=== PATIENT | female | born 1955 | race Caucasian/White ===

== ENCOUNTER 2020-06-23 08:58 | Outpatient (REF) | payer MEDICARE, BC, SELFPAY | END 2020-06-23 08:59 | disposition home or self-care (01) | LOC: HO.LAB 08:58 | PROVIDERS: PCP Internal Medicine; Visit Provider Internal Medicine | DX: Z20.822 Contact with and (suspected) exposure to COVID-19 (principal) | CPT/HCPCS: 36415; C9803; U0003 ==

== ENCOUNTER 2021-10-26 08:37 | Outpatient (REF) | payer MEDICARE, BC, SELFPAY ==
--- NOTE | ~2021-10-26 | MM_ITS ---
EXAMINATION: BONE DENSITOMETRY CLINICAL INDICATION: Osteopenia. COMPARISON: Previous BD dated 05/22/2018 and baseline BD dated 08/14/2013. TECHNIQUE: Using a [employer] DXA System (software version: 13.1) manufactured by [employer], dual-energy x-ray absorptiometry was performed of the lumbar spine and left hip. The images are of good technical quality. Summary results are attached. FINDINGS: AP SPINE L1-L4: Current: BMD 1.215 g/cm2, Z-score 0.8, T-score 0.3, normal, 1.9% increase from previous, 2.7% decrease from baseline (<5% change is not significant). Prior: BMD 1.192 g/cm2. Baseline: BMD 1.249 g/cm2. LEFT FEMUR, NECK: Current: BMD 1.001 g/cm2, Z-score 0.6, T-score -0.3, normal. Prior: BMD 1.061 g/cm2. Baseline: BMD 1.143 g/cm2. LEFT FEMUR, TOTAL: Current: BMD 1.111 g/cm2, Z-score 1.3, T-score 0.8, normal, 6.3% increase from previous, 4.4% decrease from baseline (<5% change is not significant). Prior: BMD 1.045 g/cm2. Baseline: BMD 1.162 g/cm2. IDENTIFIED RISK FACTORS: Menopause. HISTORY OF FRACTURE: None listed. MEDICATIONS: Multivitamin. MM/XR DEXA axial skeleton IMPRESSION: 1. DIAGNOSIS: Normal bone density based on the lowest T-score value of -0.3 in the femoral neck applying World Health Organization criteria. 2. 10-YEAR FRACTURE RISK PREDICTION, FRAX: According to the guidelines, FRAX calculation should only be performed on patients in the osteopenia bone density category. Therefore, FRAX was not performed on this patient. 3. Treatment Recommendations: NOF guidelines recommend consideration for treatment in postmenopausal women and men age 50 and older presenting with the following: -A hip or vertebral (clinical or morphometric) fracture. -T-score less than or equal to -2.5 at the femoral neck or spine after appropriate evaluation to exclude secondary causes. -Low bone mass at the hip or spine and a 10-year fracture probability by FRAX of greater than or equal to 3% for hip fracture or greater than or equal to 20% for major osteoporotic fracture based on the [place] adapted WHO algorithm. 4. Other Recommendations: All treatment decisions require clinical judgment and consideration of individual patient factors, including patient preferences, comorbidities, previous drug use, risk factors not captured in the FRAX model (e.g. frailty, falls, vitamin D deficiency, increased bone turnover, interval significant decline in bone density) and possible under or overestimation of fracture risk by FRAX. FUTURE SCAN RECOMMENDATION: People with diagnosed cases of osteoporosis or at high risk for fracture should have regular bone mineral density tests. For patients eligible for Medicare, routine testing is allowed once every 2 years. The testing frequency can be increased to one year for patients who have rapidly progressing disease, those who are receiving or discontinuing medical therapy to restore bone mass, or have additional risk factors.
== END 2021-10-26 08:38 | disposition home or self-care (01) ==
LOC: HO.MAMMO 08:37
PROVIDERS: Visit Provider Internal Medicine Medical Oncology
DX: Z13.820 Encounter for screening for osteoporosis (principal); Z78.0 Asymptomatic menopausal state; M85.80 Other specified disorders of bone density and structure, unspecified site
CPT/HCPCS: 77080

== ENCOUNTER 2022-06-12 10:44 | Outpatient (REF) | payer MEDICARE, BC, SELFPAY | END 2022-06-12 10:45 | disposition home or self-care (01) | LOC: HO.10HDL 10:44 | PROVIDERS: Visit Provider Otolaryngology | DX: Z13.89 Encounter for screening for other disorder (principal) ==

== ENCOUNTER 2022-06-12 10:48 | Outpatient (REF) | payer MEDICARE, BC, SELFPAY ==
[2022-06-12 15:46] LABS: Blood Urea Nitrogen 14 mg/dL (9-16); Estimated Glomerular Filt Rate > 60
== END 2022-06-12 10:49 | disposition home or self-care (01) ==
LOC: HO.10HDL 10:48
PROVIDERS: Visit Provider Otolaryngology
DX: Z01.812 Encounter for preprocedural laboratory examination (principal); R42 Dizziness and giddiness
CPT/HCPCS: 36415; 82565; 84520

== ENCOUNTER 2022-06-21 08:01 | Outpatient (REF) | payer MEDICARE, BC, SELFPAY ==
--- NOTE | ~2022-06-21 | MR_ITS ---
EXAMINATION: MR BRAIN WITHOUT AND WITH CONTRAST CLINICAL INFORMATION: Sudden onset left-sided hearing loss. Vertigo. COMPARISON: CT head from 09/19/2019. TECHNIQUE: Multiplanar, multisequence MRI of the brain was obtained using a skull base protocol without and following the administration of 10 mL of Gadavist intravenous contrast. FINDINGS: No focal restricted diffusion is demonstrated to suggest acute or subacute cerebral ischemia. No evidence of acute or chronic hemorrhagic products on heme-sensitive imaging. Scattered and partially confluent periventricular, deep white matter, and brainstem T2 FLAIR hyperintensities consistent with mild to moderate underlying microangiopathy. The ventricles are normal in morphology and size. No abnormal mass effect. No midline shift. Normal appearance of the pituitary gland. Normal positioning of the cerebellar tonsils. No mass of the cerebellopontine angles. Normal appearance of the cranial nerve V, VII, and VIII nerve roots. No edema or vascular loops near the nerve root entry sites. Normal appearance of the internal auditory canals without enhancing mass lesions. No abnormal enhancement along the course of the facial nerves bilaterally. Normal appearance of the labyrinthine structures without loss of T2 signal or abnormal enhancement. Normal arterial and venous vascular flow voids are present. No abnormal intracranial contrast enhancement. Normal, homogeneous marrow signal. Mild mucosal thickening of the paranasal sinuses. No signal abnormalities within the mastoids. MR/MR head/brain wo/w con IMPRESSION: 1. No acute intracranial abnormalities. No abnormal intracranial enhancement. 2. Mild to moderate underlying microangiopathy. 3. No additional MRI abnormalities to explain the patient's symptoms.
== END 2022-06-21 08:02 | disposition home or self-care (01) ==
LOC: HO.MRI 08:01
PROVIDERS: PCP Internal Medicine; Visit Provider Otolaryngology
DX: H91.22 Sudden idiopathic hearing loss, left ear (principal); H81.4 Vertigo of central origin; D33.3 Benign neoplasm of cranial nerves
CPT/HCPCS: 70553; A9585

== ENCOUNTER 2024-12-28 09:12 | Day surgery (SDC) | payer MEDICARE, BC, SELFPAY ==
--- OUTSIDE RECORDS SUMMARY | 2024-12-03 11:47 | XMS_ITS | Patient Health Record ---
Author Organization [facility] Address [address] [place] [id number] Care Team Providers Care District Plant Superintendent Name Role Phone Tyrone Cifuentes M.D. Primary Care Provider Unav ailable Myles Curtis Unavailable [phone] Allergies Allergen (clinical drug ingredient) Drug/Non Drug Allergy documented on EMR Reaction Allergy Type Onset Date Status Penicillin Unknown Drug Allergy Active Latex Gloves rash Drug Allergy Acti ve Reason For Referral No Information Medications Medication SIG (Take, Route, Fr equency, Duration) Notes Start Date End Date Status Omeprazole 20 MG 1 capsule Orally Onc e a day for 30 day(s) PRN 06/11/2013 Active L-Lysine Active Multi Vitamin/Minerals Active Immunizations Vaccine Route Administration Date Status Comme nts Influenza Unknown 02/24/2019 Administered Problems Problem Type SNOMED Code ICD Code Onset Dates Problem Status W/U Status Risk Notes Problem 574024227 Encounter for screening for malignant neoplasm of colon (Z12.11) Active confirmed Problem 136984937 History of adenomatous polyp of colon (Z86.010) Active confirmed Problem 533670092 Gastroesophageal reflux disease without esophagitis (K21.9) Active confirmed Problem 635159110024079 Preprocedural examination (Z01.818) Active confirmed Vital Signs Blood pressure diastolic 77 mm Hg 10/01/2024 Height 66 in 10/01/2024 Blood pressure systolic 111 mm Hg 10/01/2024 Weight 261 lbs 10/01/2024 BMI 42.12 kg/m2 10/01/2024 Procedures Procedure Date Ordered Date Performed Result Body Sit e COLONOSCOPY 10/01/2024 N/A Encounters Encounter Location Date Provider Diagnosis [facility] [address] [place] [address] 10/01/2024 Myles Curtis History of adenomato us polyp of colon Z86.010 ; Gastroesophageal reflux disease without esophagitis K21.9 ; Encounter for screening for malignant neoplasm of colon Z12.11 and Preprocedural examination Z01.818 [facility] [address] [place] [address] 12/03/2024 Myles Curtis Assessments Encounter Date Diagnosis (ICD Code) Assessment Notes Treatment Notes Treatment Clinical Notes Section Notes 10/01/2024 History of adenomatous polyp of colon (ICD-10 - Z86.010) Overall, Meliza appears well. She is not having any new nor worrisome GI complaints. Given her age, history of tubular adenomas of the colon, and her last colonoscopy being over 5 years ago, I did recommend a follow-up colonoscopy for further screening purposes. We did review the rationale for this in regard to colon cancer prevention. Full consent has been obtained for this, including risks of bleeding and perforation. The procedure will be done with monitored anesthesia care. Of note, she does advise me that she may be starting Zepbound injections for weight loss. I did advise that she will need to stop that for at least 7 days before the procedure. In regard to her reflux this seems to be stable on her current regimen of the prn omeprazole. I did advise her that obviously watching her diet and losing weight would be helpful with this condition as well. I also advised her that she could take omeprazole prior to eating in restaurants or use it more regularly if she finds that her symptoms require it, rather than using frequent lvbg-lsf-sywfj er antacids. I advised her that based on the 2 negative previous upper endoscopies and her clinical history that I do not think she requires a repeat upper endoscopy at this time. Meliza was comfortable with this plan. Thank you again for allowing me to participate in Meliza's care. I shall continue to keep you advised of her progress. 10/01/2024 Gastroesophageal reflux disease without esophagitis (ICD-10 - K21.9) USE THE OMEPRAZOLE NEEDED OR DAILY FOR THE REFLUX Overall, Meliza appears well. She is not having any new nor worrisome GI complaints. Given her age, history of tubular adenomas of the colon, and her last colonoscopy being over 5 years ago, I did recommend a follow-up colonoscopy for further screening purposes. We did review the rationale for this in regard to colon cancer prevention. Full consent has been obtained for this, including risks of bleeding and perforation. The procedure will be done with monitored anesthesia care. Of note, she does advise me that she may be starting Zepbound injections for weight loss. I did advise that she will need to stop that for at least 7 days before the procedure. In regard to her reflux this seems to be stable on her current regimen of the prn omeprazole. I did advise her that obviously watching her diet and losing weight would be helpful with this condition as well. I also advised her that she could take omeprazole prior to eating in restaurants or use it more regularly if she finds that her symptoms require it, rather than using frequent bkjg-ndn-clvui er antacids. I advised her that based on the 2 negative previous upper endoscopies and her clinical history that I do not think she requires a repeat upper endoscopy at this time. Meliza was comfortable with this plan. Thank you again for allowing me to participate in Meliza's care. I shall continue to keep you advised of her progress. 10/01/2024 Encounter for screening for malignant neoplasm of colon (ICD-10 - Z12.11) Overall, Meliza appears well. She is not having any new nor worrisome GI complaints. Given her age, history of tubular adenomas of the colon, and her last colonoscopy being over 5 years ago, I did recommend a follow-up colonoscopy for further screening purposes. We did review the rationale for this in regard to colon cancer prevention. Full consent has been obtained for this, including risks of bleeding and perforation. The procedure will be done with monitored anesthesia care. Of note, she does advise me that she may be starting Zepbound injections for weight loss. I did advise that she will need to stop that for at least 7 days before the procedure. In regard to her reflux this seems to be stable on her current regimen of the prn omeprazole. I did advise her that obviously watching her diet and losing weight would be helpful with this condition as well. I also advised her that she could take omeprazole prior to eating in restaurants or use it more regularly if she finds that her symptoms require it, rather than using frequent uszu-svm-odvkm er antacids. I advised her that based on the 2 negative previous upper endoscopies and her clinical history that I do not think she requires a repeat upper endoscopy at this time. Meliza was comfortable with this plan. Thank you again for allowing me to participate in Meliza's care. I shall continue to keep you advised of her progress. 10/01/2024 Preprocedural examination (ICD-10 - Z01.818) Overall, Meliza appears well. She is not having any new nor worrisome GI complaints. Given her age, history of tubular adenomas of the colon, and her last colonoscopy being over 5 years ago, I did recommend a follow-up colonoscopy for further screening purposes. We did review the rationale for this in regard to colon cancer prevention. Full consent has been obtained for this, including risks of bleeding and perforation. The procedure will be done with monitored anesthesia care. Of note, she does advise me that she may be starting Zepbound injections for weight loss. I did advise that she will need to stop that for at least 7 days before the procedure. In regard to her reflux this seems to be stable on her current regimen of the prn omeprazole. I did advise her that obviously watching her diet and losing weight would be helpful with this condition as well. I also advised her that she could take omeprazole prior to eating in restaurants or use it more regularly if she finds that her symptoms require it, rather than using frequent vfjj-fwp-gaoxs er antacids. I advised her that based on the 2 negative previous upper endoscopies and her clinical history that I do not think she requires a repeat upper endoscopy at this time. Meliza was comfortable with this plan. Thank you again for allowing me to participate in Meliza's care. I shall continue to keep you advised of her progress. Plan Of Treatment Pending Test Test Name Order Date COLONOSCOPY 10/01/2024 Future Test Test Name Order Date UPPER GI ENDOSCOPY 06/11/2013 COLONOSCOPY 06/11/2013 COLONOSCOPY 05/07/2019 Next Appt Details Provider Name:Myles Curtis , 12/28/2024 10:40:00 AM, [address] [place] [address] , [place], [place], [phone], Insurance Providers Payer Name Payer Address Payer Phone Subscriber Number Group Number Insured Name Patient Relationship to Insured Coverage Start Date Coverage End Date MEDICARE OF [place] [address] [place] [address] [phone] [id number] MELIZA BAIG Self - patient is the insured [address] [facility] [address] [place], [place] [phone] [id number] MELIZA BAIG Self - patient is the insured Medical (General) History Medical History History ICD Code Sleep apnea--not using her CPAP presentl y Denies KS,DM,CVA,renal disease Asthma Diagnosed with left sided br east cancer earlier in 05/2013--she follows with Gabby Pak--XRT Left knee replacement February 2018 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
--- OUTSIDE RECORDS SUMMARY | 2024-12-03 11:47 | XMS_ITS | Clinical Summary ---
Author Organization 175 [facility] Address [address] [place] [address] Phone Care Team Providers Care Historical Manuscripts Curator Name Role Phone Tyrone Cifuentes MD Primary Care Provider [phone] Allergies Active Allergy Reactions Criticality Noted Date Comments Latex Hives High 09/03/2024 Penicillins Hives High 09/03/2024 Medications clindamycin (CLEOCIN) 150 mg capsule 08/26/2024 Active naproxen (NAPROSYN) 250 mg tablet Take 1 tablet (250 mg total) by mouth. Active omeprazole (PriLOSEC) [address] capsule Take 1 capsule (20 mg total) by mouth. Active albuterol HFA (PROAIR HFA ; PROVENTIL HFA ; VENTOLIN HFA) 90 mcg/actuation inhaler Inhale 2 puffs by mouth every 6 (six) hours if needed for wheezing. 6.7 g 11 09/03/2024 Active Encounters Date Type Department Care Team Description 10/14/2024 9:15 AM EDT [facility] [address] [phone] Mild intermittent asthma without complication 09/03/2024 2:14 PM EDT - 09/03/2024 11:59 PM EDT Hospital Encounter [facility] Xray [address] [place] [id number] Mild intermittent asthma without complication Discharge Disposition: Home or Self Care 09/03/2024 1:15 PM EDT Office Visit Pulmonolgy [address] [place] [address] Alton Sharif MD FRANCISCO (obstructive sleep apnea) (Primary Dx); Mild intermittent asthma without complication from Last 3 Months Surgical History Surgery Date Site/Laterality Comments KNEE SURGERY 1999 PROCEDURE: HISTORICAL KNEE SURGERY; COMMENT: & 1981- torn ligaments CHOLECYSTECTOMY 1983 PROCEDURE: HISTORICAL CHOLECYSTECTOMY BREAST LUMPECTOMY 2013 PROCEDURE: HISTORICAL BREAST LUMPECTOMY; COMMENT: f/b radiation tx Medical History Medical History Date Comments Morbid obesity with BMI of 40.0-44.9, adult ([facility] V24, [facility] V28) 07/03/2017 DX:Morbid obesity with BMI o f 40.0-44.9, adult ([facility]) History of breast cancer 07/03/2017 DX:Hist ory of breast cancer History of basal cell carcinoma 07/03/2017 DX:History of basal cell carcinoma History of squamous cell carcinoma 07/03/2017 DX:History of squamous cell carcinoma Anxiety 07/03/2017 DX:Anxiety Depression 07/03/2017 DX:Depression History of alcohol dependenc e ([facility] V24, [facility] V28) 07/03/2017 DX:History of alcohol depen dence ([facility]); COMMENT: Sober since 1992 FRANCISCO (obstructive sleep apnea) 05/23/2017 DX :FRANCISCO (obstructive sleep apnea); COMMENT: [facility] Home Polysomnogram: Date 06/18/2017; AHI 8, Unclassified apneas 0; Obstructive apneas 20; Central apneas 1; Mixed apneas 0; hypopneas 15; average oxygen saturation 96% (lowest 85% without saturations <88% for 5% or more of study) - Obstructive Sleep Apnea - mild; mostly obstructive apneas with hypopneas; no sleep related hypoventilation by 2018 home p* Family History Medical History Relation Name Comments Other: Pancreatic Cancer Aunt Dep ression Alcohol/Drug Brother COPD Father Other: TIA Mother Diabetes Mother's side Aunts & Uncles Relation Name Status Comments Aunt Brother Father Mother Mother's side Social History Tobacco Use Types Packs/Day Years Used Date Smoking Tobacco: Never Smokeless Tobacco: Never Alcohol Use Standard Drinks/Week Comments No 0 (1 standard drink = 0.6 oz pur e alcohol) Comments Unknown Sex and Gender Information Value Date Recorded Sex Assigned at Not on file Legal Sex Female 1:41 PM EST Gender Identity Not on file Sexual Orientation Not on file Obstetrics History Last Filed Vital Signs Vital Sign Reading Time Taken Comments Blood Pressure 128/90 09/03/2024 1:25 PM EDT Pulse 78 09/03/2024 1:25 PM EDT Temperature 36.5 C (97.7 F) 09/03/2024 1:25 PM EDT Respiratory Rate 16 09/03/2024 1:25 PM EDT Oxygen Saturation 97% 09/03/2024 1:25 PM EDT Inhaled Oxygen Concentration - - Weight 117 kg (258 lb 9.6 oz) 09/03/2024 1:25 PM EDT Height 167.6 cm (5' 6 ) 09/03/2024 1:25 PM EDT Body Mass Index 41.74 09/03/2024 1:25 PM EDT Plan of Treatment Upcoming Encounters Date Type Department Care Team (Late st Contact Info) Description 09/03/2025 8:30 AM EDT Office Visit Pulmonolgy - [place] [address] [place] [phone] Alton Sharif MD [address] [place] [address] Health Maintenance Due Date Last Done Comments Breast Cancer Screening 1955 Colorectal Cancer Screening: Colonoscopy 06/26/2023 Depression Screening 06/26/2023 Falls Risk Assessment 06/26/2023 Hepatitis C Screening 06/26/2023 Medicare Annual Wellness Visit 06/26/2023 Osteoporosis Screening (Bone Density Screening) 06/26/2023 Social Influencers of Health Screening 06/26/2023 COVID-19 Vaccine (8 - Moderna risk season) 2024 03/17/2024, 05/09/2023, 03/19/2022, Additional history exists Influenza Vaccine (#1) 2025 , 05/09/2023, 03/12/2022, Additional history exists DTaP,Tdap,and Td Vaccines (2 - Td or Tdap) 08/26/2033 08/27/2023 Zoster Vaccines Completed 06/15/2020, 03/23/2020 Pneumococcal Vaccine: 50+ Years Completed 03/03/2021, 02/26/2020 RSV Immunization Adult Patients Completed 05/09/2023 HIB Vaccines Aged Out No longer eligi ble based on patient's age to complete this topic HPV Vaccines Aged Out No longer eligi ble based on patient's age to complete this topic Hepatitis A Vaccines Aged Out No long er eligible based on patient's age to complete this topic Hepatitis B Vaccines Aged Out No long er eligible based on patient's age to complete this topic IPV Vaccines Aged Out No longer eligi ble based on patient's age to complete this topic MMR Vaccines Aged Out No longer eligi ble based on patient's age to complete this topic Meningococcal ACWY Vaccine Aged Out N o longer eligible based on patient's age to complete this topic Meningococcal B Vaccine Aged Out No l onger eligible based on patient's age to complete this topic RSV Immunization Patients Under 20 months Aged Out No longer eligible based on patient's age to complete this topic Varicella Vaccines Aged Out No longer eligible based on patient's age to complete this topic Procedures Procedure Name Priority Date/Time Associated Diagnosis Comments PULMONARY FUNCTION TESTING Routine 10/14/2024 9:03 AM EDT Mild intermittent asthma without complication D-DIMER Routine 09/03/2024 2:33 PM EDT Mild intermittent asthma without complication XR CHEST 2 VIEWS Routine 09/03/2024 2:21 PM EDT Mild intermittent asthma without complication from Last 3 Months Results * Pulmonary function testing: Spirometry with Bronchodilator (10/14/2024 9:03 AM EDT) Impressions Ritu Ivan MD - 10/14/2024 9:03 AM EDT FEV1/FVC 82% FEV1 2.38 and 97%. FVC 89%. No bronchodilator response, but 9% change. TLC 113%. RV 138%. DLCO 97%. Mild obstruction and air trapping hyperinflation. No restriction. And no decrease in diffusion. Finding consistent with mild obstructive lung disease. us Alton Sharif MD PFT ORDERABLES Final Result * D-Dimer (09/03/2024 2:33 PM EDT) D-Dimer, Quant (D-DU) 171 <=230 ng/mL DDU LAB COAGULATION METHOD 09/03/2024 4:15 PM EDT [facility] Blood Venous blood specimen / Unknown Venipuncture / Unknown 09/03/2024 2:33 PM EDT 09/03/2024 3:39 PM EDT Narrative [facility] - 09/03/2024 4:15 PM EDT D-Dimer <230 ng/mL (D-Dimer units) is the threshold for exclusion of DVT/PE. D-Dimer may be elevated in: Critically ill, severely infected, trauma patients, DIC, acute CVA, acute GA, unstable angina, AF, old age, , and smoking. D-Dimer may be decreased with: Initiation of heparin therapy and oral anticoagulants. us Alton Sharif MD LAB BLOOD ORDERABLES Final Resul t [facility] [address] [place] [address], [place] [phone] * XR Chest 2 Views (09/03/2024 2:21 PM EDT) Anatomical Region Laterality Modality Body Radiographic Chasity ging 09/04/2024 6:52 AM EDT Impressions 09/04/2024 6:54 AM EDT No pneumonia or edema. -------- FINAL REPORT -------- Dictated By: Candido Beth Dictated Date: 09/04/2024 06:52 ET Assigned Physician: Candido Beth Reviewed and Electronically Signed By: Candido Beth Signed Date: 09/04/2024 06:54 ET Workstation ID: [id number] Transcribed By: Self Edit Transcribed Date: 09/04/2024 06:52 ET Narrative 09/04/2024 6:54 AM EDT EXAMINATION: CHEST CLINICAL INFORMATION: Chest pain. Shortness of breath COMPARISON: None. TECHNIQUE: 2 views of the chest FINDINGS: There is tortuosity the aorta. The cardiac size saurabh and vasculature are within normal limits. No acute pneumonia. No pleural fluid or pneumothorax. There is a rim calcified nodule in the left chest wall. There are osteophytes in the spine and clips in the upper abdomen. Procedure Note Candido Beth MD - 09/04/2024 EXAMINATION: CHEST CLINICAL INFORMATION: Chest pain. Shortness of breath COMPARISON: None. TECHNIQUE: 2 views of the chest FINDINGS: There is tortuosity the aorta. The cardiac size saurabh and vasculature arewithin normal limits. No acute pneumonia. No pleural fluid orpneumothorax. There is a rim calcified nodule in the left chest wall.There are osteophytes in the spine and clips in the upper abdomen. IMPRESSION: No pneumonia or edema. -------- FINAL REPORT -------- Dictated By: Candido Beth Dictated Date: 09/04/2024 06:52 ET Assigned Physician: Candido Beth Reviewed and Electronically Signed By: Candido Beth Signed Date: 09/04/2024 06:54 ET Workstation ID: [id number] Transcribed By: Self Edit Transcribed Date: 09/04/2024 06:52 ET Alton Sharif MD IMG XR PROCEDURES Final Result from Last 3 Months Insurance [facility] Care Teams Historical Manuscripts Curator Relationship Specialty Start Date End Date Tyrone Cifuentes MD [address], [place] [phone] PCP - General Internal Medicine 05/23/17
[2024-12-24 15:04] VITALS: BMI 42.1
[2024-12-24 15:32] VITALS: BMI 39.5
--- NOTE | 2024-12-25 08:35 | P.CONAN_ITS ---
Documented by User: Vanessa Alonso NP 12/25/24 08:35 HPI - Anesthesia Eval Consult details Narrative: 69yo F for Colonoscopy Anesthesia Pre-Procedure Meds Is the patient on any of the following meds?: GLP1/DPP4 PMFSH Active Problems Active Problems: All Active Problems Decreased hearing of left ear (Acute) Breast cancer (Acute) Past Medical History Medical History Obesity (BMI 30-39.9) Murmur, cardiac FRANCISCO (obstructive sleep apnea) Hiatal hernia Skin cancer Acid reflux disease Asthma Breast cancer Family History Family History Brother Pre-diabetes Sister No problems noted. Mother Dementia Paternal Aunt Pancreatic cancer Leukemia Father COPD (chronic obstructive pulmonary disease) Surgical History Surgical History History of lumpectomy of left breast History of esophagogastroduodenoscopy (EGD) Hx of colonoscopy (07/2019) Hx of cholecystectomy Total knee replacement status H/O knee surgery Social History Social History Household Members: None Housing: Condominium Are you a primary urgent care nurse practitioner to a significant other at home: No Do you presently have visiting nurse or other home services: No Alcohol intake: former Patient Tobacco Use Status: Never used Tobacco Use of substances other than those prescribed or required for medical reasons: No Have you been hit, kicked, punched, or otherwise hurt by someone within the past year? If so, by whom?: No Are you DNR?: No Advance Directives: Yes Advance Directives Information Provided: Yes Advance Directives on File: No Advance Directives Date on File: 04/24/11 Patient : No Poor oral hygiene: No service: No Current occupational status: retired Meds Allergies Allergy/AdvReac Type Severity Reaction Status Date / Time latex (LATEX) Allergy Unknown RASH Verified 12/28/24 09:25 Penicillins (PENICILLINS) Allergy Unknown RASH Verified 12/28/24 09:25 Home Medications ?Medication ?Instructions ?Recorded ?Confirmed ?Last Taken ?Type albuterol 90 mcg/actuation aerosol 90 mcg inhalation D AILY PRN sob 10/03/20 12/24/24 Unknown History inhaler omeprazole 20 mg capsule,delayed 20 mg PO DAILY PRN Ac id Reflux 12/24/24 12/24/24 Unknown History release tirzepatide (weight loss) 2.5 2.5 mg subcut QWEEK 11/2612/24/24 12/19/24 History mg/0.5 mL subcutaneous pen injector (Zepbound) Exam Height,Weight and Vital Signs: Height 5 ft 6 in Weight 111.13 kg Assessment and Plan Assessment Anesthesia Assessment: Chart Reviewed Documented by User: Todd Gaitan MD 12/28/24 11:00 [facility] Past Medical History Medical History Obesity (BMI 30-39.9) Murmur, cardiac FRANCISCO (obstructive sleep apnea) Hiatal hernia Skin cancer Acid reflux disease Asthma Breast cancer Cognitive capacity: good Functional capacity: independent ambulation Family History Family History Brother Pre-diabetes Sister No problems noted. Mother Dementia Paternal Aunt Pancreatic cancer Leukemia Father COPD (chronic obstructive pulmonary disease) Family history of problems with anesthesia: No Surgical History Surgical History History of lumpectomy of left breast History of esophagogastroduodenoscopy (EGD) Hx of colonoscopy (07/2019) Hx of cholecystectomy Total knee replacement status H/O knee surgery History of Problems with Anesthesia: No Social History Social History Household Members: None Housing: Condominium Are you a primary urgent care nurse practitioner to a significant other at home: No Do you presently have visiting nurse or other home services: No Alcohol intake: former Patient Tobacco Use Status: Never used Tobacco Use of substances other than those prescribed or required for medical reasons: No Have you been hit, kicked, punched, or otherwise hurt by someone within the past year? If so, by whom?: No Are you DNR?: No Advance Directives: Yes Advance Directives Information Provided: Yes Advance Directives on File: No Advance Directives Date on File: 04/24/11 Patient : No Poor oral hygiene: No service: No Current occupational status: retired Meds Allergies Allergy/AdvReac Type Severity Reaction Status Date / Time latex (LATEX) Allergy Unknown RASH Verified 12/28/24 09:25 Penicillins (PENICILLINS) Allergy Unknown RASH Verified 12/28/24 09:25 Home Medications ?Medication ?Instructions ?Recorded ?Confirmed ?Last Taken ?Type albuterol 90 mcg/actuation aerosol 90 mcg inhalation D AILY PRN sob 10/03/20 12/24/24 Unknown History inhaler omeprazole 20 mg capsule,delayed 20 mg PO DAILY PRN Ac id Reflux 12/24/24 12/24/24 Unknown History release tirzepatide (weight loss) 2.5 2.5 mg subcut QWEEK 11/2612/24/24 12/19/24 History mg/0.5 mL subcutaneous pen injector (Zepbound) Exam Exam Date and Time: 12/28/2024 Airway Mallampati Class: II TM Dist: >3cm Neck ROM: Full Loose/Missing/Broken Teeth: No Heart: rrr Lungs: cts Other: normal Assessment and Plan Final Anesthetic Review Family History of Problems with Anesthesia: No History of Problems with Anesthesia: No NPO: Yes ASA Class: II Final Preanesthetic Review: No Changes in Pt Med Stat, Meds/Allgs Chart Reviewed, Consent Obtained/Reviewed and Anes Risks/Benef Reviewed Patient Risk: Low Procedure Risk: Low Anesthetic Plan Anesthetic Plan: MAC: Disposition: Standard PACU
[2024-12-28 09:24] VITALS: BMI 38.3
[2024-12-28 09:33] VITALS: BP 135/70; PULSE 73; RESP 16; TEMP 36.2; O2SAT 96
[2024-12-28] MEDS: Lactated Ringers 1,000 ML 100 ML IVCONT (09:55)
[2024-12-28 11:55] VITALS: BP 140/80; PULSE 84; RESP 20; TEMP 36.9; O2SAT 98
--- NOTE | 2024-12-28 11:57 | PM.OP ---
Brief Operative Note Date of Service: 12/28/24 Pre-op diagnosis: Screening Post-op diagnosis: other (Diverticulosis) Procedure: Colonoscopy to the cecum and TI Surgeon: Myles Curtis MD Anesthesia: MAC Was an Leather Splitter used for this Procedure?: No Estimated blood loss (mL): 0 Pathology: none sent Condition: stable Disposition: PACU
[2024-12-28 12:15] VITALS: BP 136/68; PULSE 70; RESP 16; TEMP 36.2; O2SAT 99
--- NOTE | 2024-12-28 12:17 | OP_ITS ---
DATE OF SERVICE: 12/28/2024 SURGEON: Myles Curtis MD INDICATIONS: The patient presents for evaluation of colorectal cancer screening and personal history of tubular adenoma of the colon. Full consent obtained from her for this, including risks of bleeding and perforation. PREOPERATIVE DIAGNOSIS: POSTOPERATIVE DIAGNOSIS: PROCEDURE PERFORMED: Colonoscopy to cecum and terminal ileum. ESTIMATED BLOOD LOSS: COMPLICATIONS: ANESTHESIA: Medication used, monitored anesthesia care. ASSISTANTS: SPECIMENS: PREOPERATIVE DIAGNOSES: Colorectal cancer screening and personal history of tubular adenoma of the colon. POSTOPERATIVE DIAGNOSES: Colorectal cancer screening, personal history of tubular adenoma of the colon, diverticulosis, and internal hemorrhoids. DESCRIPTION OF PROCEDURE: The patient was placed in the left lateral decubitus position. The digital rectal exam revealed no abnormalities. The Olympus video pediatric colonoscope was entered into the rectum and advanced easily to the cecum. Once in the cecum, I did identify normal-appearing cecal pouch with appendiceal orifice, a normal-appearing ileocecal valve. The terminal ileum was cannulated and appeared normal. The scope was withdrawn back into the colon. The entire cecum and ileocecal valve appeared normal. The scope was slowly withdrawn assessing all mucosal surfaces carefully. Preparation was excellent. I did not visualize any sign of polyps, colitis, nor angiodysplasia. There was a mild amount of sigmoid diverticulosis. In the rectum, scope was retroflexed visualizing internal hemorrhoids, but no other pathology. The rectal mucosa appeared normal. The scope was straightened and withdrawn from the patient. She tolerated the procedure well and was returned to the recovery area in stable condition. IMPRESSION: 1. Diverticulosis. 2. Internal hemorrhoids. PLAN: The patient should have a repeat colonoscopy in 5 years for further screening and surveillance given the previous history of tubular adenomas. She will otherwise see me on a p.r.n. basis. MD TJ Varela/CAROL / [id number]
== END 2024-12-28 12:29 | disposition home or self-care (01) ==
PROVIDERS: PCP Internal Medicine; Visit Provider Internal Medicine
PROC: 0DJD8ZZ Inspection of Lower Intestinal Tract, Via Natural or Artificial Opening Endoscopic (ICD-10-PCS; CPT 45378; principal; 2024-12-28 10:40)
DX: Z12.11 Encounter for screening for malignant neoplasm of colon (principal); K57.30 Diverticulosis of large intestine without perforation or abscess without bleeding; K64.8 Other hemorrhoids; Z86.0101 Personal history of adenomatous and serrated colon polyps; J45.909 Unspecified asthma, uncomplicated; G47.33 Obstructive sleep apnea (adult) (pediatric); Z99.89 Dependence on other enabling machines and devices; Z85.3 Personal history of malignant neoplasm of breast; Z79.899 Other long term (current) drug therapy
CPT/HCPCS: G0105; J2003; J2704; J3010